=== PATIENT | male | born 1990 | race Asian ===

== ENCOUNTER 2019-06-02 08:58 | Emergency (ER) | payer BC ==
[~2019-06-02] VITALS: Ht 182.9 cm; Wt 80.3 kg
--- NOTE | 2019-06-02 09:15 | NUR ---
"Chest-back pain xcouple weeks. NOT better. +Dry cough". PATIENT A/OX4, BREATHING EVEN AND UNLABORED, NO SOB NOTED, NEEDS ATTENDED.
[2019-06-02 11:10] VITALS: BP 145/75
== END 2019-06-02 11:10 | disposition home or self-care (01) ==
LOC: ER 09:01
DX: J06.9 Acute upper respiratory infection, unspecified (principal)
CPT/HCPCS: 71045-TC